=== PATIENT | male | born 1995 | race African-American/Black ===

== ENCOUNTER → 2018-02-07 | Outpatient (REF) | payer OTHER ==
[2018-02-07 22:24] LABS: APPEARANCE, URINE CLEAR (CLEAR); BACTERIA, URINE AUTO NEGATIVE (NEGATIVE); BILIRUBIN, URINE AUTO NEGATIVE (NEGATIVE); BLOOD, URINE BLOOD NEGATIVE (NEGATIVE); COLOR, URINE YELLOW (YELLOW); GLUCOSE, URINE (UA) AUTO NEGATIVE (NEGATIVE); KETONE, URINE AUTO NEGATIVE (NEGATIVE); LEUKOCYTE ESTERASE, URINE AUTO 3+ (NEGATIVE); NITRITE, URINE AUTO NEGATIVE (NEGATIVE); PROTEIN, URINE AUTO NEGATIVE (NEGATIVE); RBC, URINE AUTO 3 /HPF (0-3); SPECIFIC GRAVITY URINE AUTO 1.012 (1.002-1.035); SQUAMOUS EPITHELIAL CELL UR AU 0 /HPF (0-6); WBC, URINE AUTO TNTC /HPF (0-3)
[2018-02-08 17:29] LABS: CHLAMYDIA DNA AMPLIFICATION NEGATIVE (NEGATIVE); GC DNA AMPLIFICATION POSITIVE (NEGATIVE)
== END ==
LOC: M LAB REF 02-08 15:06
DX: N39.0 Urinary tract infection, site not specified (principal)

== ENCOUNTER 2019-01-08 17:25 | Emergency (ER) | payer OTHER ==
[~2019-01-08] VITALS: Ht 185.4 cm; Wt 85.8 kg
[2019-01-08] MEDS ORDERED: LIDOCAINE 2% MDV 20 ML VIAL SC ONE (21:30)
[2019-01-08 22:05] VITALS: BP 134/90
== END 2019-01-08 22:07 | disposition home or self-care (01) ==
LOC: M ED 17:25
DX: S01.511A Laceration without foreign body of lip, initial encounter (principal); X58.XXXA Exposure to other specified factors, initial encounter; Y92.89 Other specified places as the place of occurrence of the external cause; Y93.9 Activity, unspecified; Y99.1 Military activity; Z72.0 Tobacco use